=== PATIENT | female | born 1990 | race Caucasian/White ===

== ENCOUNTER 2018-12-29 20:52 | Emergency (ER) | payer OTHER ==
[~2018-12-29] VITALS: Ht 157.5 cm; Wt 49.9 kg
--- NOTE | 2018-12-29 21:28 | NUR ---
wound closed per julee nevarez. cleansed with NS, dried with sterile gauze, neosporin ointment, adaptic, telfa, maeve, coban dressing applied, tolerated well. awake alert skin w/d resp nonlab. nad noted.
[2018-12-29] MEDS ORDERED: NEOMYCIN/POLYMYX/BACITR OINT 0.9 GM PKT TOP ONE (21:30)
== END 2018-12-29 21:35 | disposition home or self-care (01) ==
LOC: ER 20:52
DX: S61.411A Laceration without foreign body of right hand, initial encounter (principal); W26.0XXA Contact with knife, initial encounter; Y93.89 Activity, other specified; Y92.019 Unspecified place in single-family (private) house as the place of occurrence of the external cause
CPT/HCPCS: 99283

== ENCOUNTER 2019-10-28 18:45 | Emergency (ER) | payer OTHER ==
[~2019-10-28] VITALS: Ht 157.5 cm; Wt 49.9 kg
[2019-10-28] MEDS ORDERED: METOPROLOL SUCCINATE 25 MG TAB XL PO ONE (19:00)
[2019-10-28] MEDS ORDERED: LORAZEPAM 0.5 MG TAB PO ONE (19:00)
[2019-10-28 19:48] VITALS: BP 139/96
== END 2019-10-28 20:15 | disposition home or self-care (01) ==
LOC: ER 18:45
DX: I10 Essential (primary) hypertension (principal); F41.9 Anxiety disorder, unspecified
CPT/HCPCS: 99283